=== PATIENT | female | born 1980 | race Caucasian/White ===

== ENCOUNTER 2018-06-09 07:00 | Emergency (ER) | payer BC ==
[~2018-06-09] VITALS: Ht 160 cm; Wt 92.9 kg
[2018-06-09 07:03] VITALS: BP 157/91; PULSE 80; RESP 16; Ht 160 cm; Wt 92.9 kg
--- NOTE | 2018-06-09 08:18 | ERD ---
ER Documentation Chief Complaint Chief Complaint pt bib self with c/o vag bleeding starting 2 days ago, heavy bleeding today HPI 38-year-old female with history of fibroids complains of menorrhagia. States that started 2 days ago. States that the bleeding has been worse since 3:30 AM today. States she went through 8 pads since 3:30 AM but feels that the bleeding is getting better. Denies any chance of . Denies any fevers, chills, abdominal pain, pelvic pain, lightheadedness, dizziness, palpitations, syncope. ROS All systems reviewed and are negative except as per history of present illness. Medications Home Meds Active Scripts Ibuprofen* (Motrin*) 600 Mg Tab, 600 MG PO QAM for menorrhagia for 7 Days, #7 TAB Prov:UMA GARCIA 06/09/18 Noreth A-Et Estra/Fe Fumarate (LO LOESTRIN FE 1-10 TABLET) 1 Each Tablet, 1 EACH PO QAM for menorrhagia for 30 Days, TAB Prov:UMA GARCIA 06/09/18 Allergies Allergies: Coded Allergies: No Known Allergy (Unverified , 06/09/18) PMhx/Soc History of Surgery: Yes (C/S) Anesthesia Reaction: No Hx Miscellaneous Medical Probl: Yes (Fibroids) Hx Alcohol Use: No Hx Substance Use: No Hx Tobacco Use: No Smoking Status: Never smoker FmHx Family History: No diabetes, No coronary disease, No other Physical Exam Vitals Vital Signs Date Temp Pulse Resp B/P (MAP) Pulse Ox O2 O2 Flow FiO2 Time Delivery Rate 06/09/18 97.5 80 16 157/91 98 07:03 (113) Physical Exam Const: No acute distress Head: Atraumatic Eyes: Normal Conjunctiva ENT: Normal External Ears, Nose and Mouth. Neck: Full range of motion. No meningismus. Resp: Clear to auscultation bilaterally Cardio: Regular rate and rhythm, no murmurs Abd: Soft, non tender, non distended. 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 There is no acute bleeding noted from the vagina. Result Diagram: 06/09/18 0733 Results 24 hrs Laboratory Tests Test 06/09/18 07:15 06/09/18 07:33 POC Beta HCG, Qualitative NEGATIVE White Blood Count 6.7 10^3/ul Red Blood Count 5.08 10^6/ul Hemoglobin 13.7 g/dl Hematocrit 41.5 % Mean Corpuscular Volume 81.7 fl Mean Corpuscular Hemoglobin 27.0 pg Mean Corpuscular Hemoglobin Concent 33.0 g/dl Red Cell Distribution Width 13.4 % Platelet Count 275 10^3/UL Mean Platelet Volume 9.7 fl Immature Granulocytes % 0.300 % Neutrophils % 54.1 % Lymphocytes % 31.9 % Monocytes % 7.8 % Eosinophils % 5.2 % Basophils % 0.7 % Nucleated Red Blood Cells % 0.0 /100WBC Immature Granulocytes # 0.020 10^3/ul Neutrophils # 3.6 10^3/ul Lymphocytes # 2.1 10^3/ul Monocytes # 0.5 10^3/ul Eosinophils # 0.4 10^3/ul Basophils # 0.1 10^3/ul Nucleated Red Blood Cells # 0.0 10^3/ul Prothrombin Time 12.3 Sec Prothrombin Time Ratio 1.0 INR International Normalized Ratio 0.90 Activated Partial Thromboplast Time 32.6 Sec Current Medications Medications Dose Sig/Sandhya Start Time Status Last (Trade) Ordered Route PRN Stop Time Admin Dose Reason Admin Ibuprofen 600 mg ONCE ONCE 06/09/18 (Motrin) PO 09:00 06/09/18 09:01 Procedures/MDM DIAGNOSTIC IMAGING REPORT Patient: BELEM AKERS : 1980 Age: 38 Sex: F [id number] DOS: 06/09/18 0725 Ordering MD: UMA GARCIA Location: [facility] Room/Bed: PROCEDURE: US Pelvis. CLINICAL INDICATION: Excessive vaginal bleeding TECHNIQUE: Multiple sonographic images of the pelvis were obtained utilizing transabdominal and endovaginal technique. The images were reviewed on a PACS workstation. COMPARISON: None. FINDINGS: The uterus is enlarged in size with a heterogeneous appearance of the myometrium. The uterus measures 11.0 x 10.9 x 9.8 cm. There are multiple fibroids within the uterus. There is a intramural calcified fibroid measuring 5.5 cm. There is a pedunculated fibroid measuring 6.0 cm. The endometrial stripe is homogeneous in appearance and has the thickness of 5 mm. The left ovary was not seen. The right ovary measures 5.7 x 3.3 x 4.3 cm. There is Doppler flow in the right ovary. There is a 3.5 cm right ovarian cyst which appears to have internal debris. No free fluid is present within the pelvis. RPTAT: AA IMPRESSION: Fibroid uterus. Possible complex right ovarian cyst measuring 3.5 cm. Further evaluation with endovaginal examination is recommended. .Santy Christianson MD, MD Date Time Electronically viewed and signed by .Santy Christianson MD, MD on 06/09/2018 08:19 .S/ CC: UMA GARCIA [id number] MDM: CBC showed patient is not anemic and coagulation studies showed she does not have any coagulopathy. Ultrasound showed fibroids. This is probably was causing the menorrhagia. Patient is stable and has no symptomatic anemia. Patient was given ibuprofen in the ER. Advised to take 600 mg daily for the next 7 days. I also put patient on a 30-day course of oral contraceptives to he lp with the bleeding. Low suspicion for symptomatic anemia, shock, or any other emergent condition. Patient advised to follow-up with primary care as fibroids is a chronic condition which needs to be managed on outpatient basis. Patient advised to follow up with PMD. All questions answered at discharge. Departure Diagnosis: Primary Impression: Fibroids Additional Impression: Menorrhagia Menorrahagia type: with onset of menstrual periods Qualified Codes: N92.2 - Excessive menstruation at puberty Condition: Stable UMA GARCIA June 09, 2018 08:18
[2018-06-09] MEDS ORDERED: NORE1TAB12 PO (08:40)
[2018-06-09] MEDS ORDERED: IBUP-1542 PO (08:40)
[2018-06-09] MEDS ORDERED: IBUPROFEN 600 MG TAB PO ONE (09:00)
== END 2018-06-09 09:03 | disposition home or self-care (01) ==
LOC: FTE 07:00
DX: D21.9 Benign neoplasm of connective and other soft tissue, unspecified (principal); N92.0 Excessive and frequent menstruation with regular cycle
CPT/HCPCS: 76856; 81025; 85025; 85610; 85730; 99284; Z7610